=== PATIENT | female | born 1940 | race Caucasian/White ===

== ENCOUNTER 2020-12-01 10:36 | Emergency (ER) | payer MEDICARE, OTHER, SELFPAY ==
--- NOTE | ~2020-12-01 | XR_ITS ---
EXAMINATION: XR chest 2V DATE: 12/01/2020 11:17 INDICATION: Cough. Wheezing. TECHNIQUE: Frontal and lateral views of the chest were obtained. COMPARISON: None. FINDINGS: There is mild scarring at the lung apices. There are airspace opacities at the lung bases, consistent with atelectasis versus scarring. Calcified pulmonary nodules and calcified hilar and medi astinal lymph nodes are consistent with old granulomatous disease. No pleural effusion or pneumothora x. Cardiomegaly is noted. There is a left chest wall pacer with leads in the right atrium and right v entricle. There is a chronic compression fracture of mid thoracic spine. There is an old healed fract ure of left clavicle. IMPRESSION: 1. Mild atelectasis versus scarring at the lung bases and mild scarring at the lung apices. 2. Cardiomegaly. Reviewed, dictated and finalized at location A. ER INSTALLER
[2020-12-01 10:46] VITALS: BP 189/70; PULSE 58; RESP 14; TEMP 36.6; O2SAT 98
--- NOTE | 2020-12-01 11:01 | ED.URI ---
HPI - URI/Sore Throat General Chief Complaint: Upper Respiratory Infection Stated Complaint: cough Time Seen by Provider: 12/01/20 11:01 Source: patient and RN notes reviewed Mode of arrival: ambulatory Limitations: no limitations History of Present Illness HPI Narrative: 80 year old female presents to express care with complaints of cough with yellow mucous expectoration for the past 8 days. Patient states that she has some sinus drainage noted with sinus pressure and congestion,denies any ear pain, sore throat, no noted fevers, chills or sweats. Patient states that cough is worse at night has been taking Delsym and Robitussin for the cough with minimal improvement. MD elicited complaint: cough, rhinorrhea, nasal congestion and sinus pain Pertinent past history: asthma and seasonal allergies Onset (ago): day(s) (8) Consistency: progressively worsening Description of mucous: yellow Able to tolerate fluids by mouth: Yes Exacerbating factors: exertion Relieving factors: nothing Related Data Home Medications Medication Instructions Recorded Confirmed amiodarone 400 mg PO DAILY 12/01/20 12/01/20 atorvastatin 80 mg PO DAILY 12/01/20 12/01/20 cholecalciferol (vitamin D3) 100 mcg PO DAILY 12/01/20 12/01/20 [Vitamin D3] clopidogrel [Plavix] 75 mg PO DAILY 12/01/20 12/01/20 ergocalciferol (vitamin D2) 1,250 mcg PO WEEKLY 12/01/20 12/01/20 [Vitamin D2] famotidine 20 mg PO DAILY 12/01/20 12/01/20 levothyroxine 50 mcg PO DAILY 12/01/20 12/01/20 meloxicam 7.5 mg PO DAILY 12/01/20 12/01/20 metoprolol tartrate 100 mg PO DAILY 12/01/20 12/01/20 mometasone-formoterol [Dulera] 2 puff INHALATION Q12H 12/01/20 12/01/20 vitamins A,C,[id number] 2 tablet PO BID 12/01/20 12/01/20 [Ocuvite Preservision] Allergies Allergy/AdvReac Type Severity Reaction Status Date / Time nitrofurantoin Allergy Unknown Swelling Verified 12/01/20 11:01 Sulfa (Sulfonamide Allergy Unknown Rash Verified 12/01/20 11:01 Antibiotics) Review of Systems Review of Systems: Narrative: CONSTITUTIONAL: Denies fever, chills, or sweats. EYES: Denies visual changes, redness, or discharge. ENT: Positive rhinorrhea, congestion, sinus pain,no sore throat, or otalgia. CARDIOVASCULAR: Denies chest pain, palpitations, or edema. RESPIRATORY: Positive for cough and dyspnea with cough. GASTROINTESTINAL: Denies abdominal pain, nausea, vomiting, or diarrhea. GENITOURINARY: Denies dysuria or hematuria. SKIN: Denies rash or itching. MUSCULOSKELETAL: Denies back pain, joint pain, or myalgia. NEUROLOGIC: Denies headache, numbness, or weakness. PSYCHIATRIC: Denies anxiety or depression. All systems reviewed & are unremarkable except as noted in HPI and below PMFSH Past Medical History Medical History (Updated 12/01/20 @ 12:31 by Ann Oseguera NP) Arthritis Asthma Cardiac defibrillator in place Hyperlipidemia Hypertension Hypothyroidism Osteopenia Seasonal allergies Surgical History Surgical History (Updated 12/01/20 @ 12:31 by Ann Oseguera NP) H/O cataract removal with insertion of prosthetic lens H/O heart artery stent History of bladder suspension procedure History of cholecystectomy History of hysterectomy History of tonsillectomy History of total right knee replacement Hx of appendectomy Family History Family History (Updated 12/01/20 @ 11:14 by Ann Oseguera NP) Father Family history of malignant neoplasm Sibling Acute myocardial infarction Cerebrovascular accident Hypertension Mother Acute myocardial infarction Other Family history of arthritis Social History Social History (Updated 12/01/20 @ 11:25 by Ann Oseguera NP) Smoking status: Never smoker Alcohol intake: never Substance use: never Living arrangements: with family Occupation/Education: retired Gender identity (if verbalized by the patient): Female Comments At time of signature, agree with nursing past medical, surgical, social and family
[2020-12-01 11:06] VITALS: BP 189/70; PULSE 58; RESP 14; TEMP 36.6; O2SAT 98
[2020-12-01 11:45] VITALS: BP 142/80
== END 2020-12-01 11:45 | disposition home or self-care (01) ==
PROVIDERS: Emergency Provider Registered Nurse; PCP Internal Medicine
DX: J40 Bronchitis, not specified as acute or chronic (principal); J32.9 Chronic sinusitis, unspecified; M19.90 Unspecified osteoarthritis, unspecified site; J45.909 Unspecified asthma, uncomplicated; E78.5 Hyperlipidemia, unspecified; I10 Essential (primary) hypertension; E03.9 Hypothyroidism, unspecified; M85.80 Other specified disorders of bone density and structure, unspecified site; Z95.810 Presence of automatic (implantable) cardiac defibrillator; Z95.5 Presence of coronary angioplasty implant and graft; Z96.651 Presence of right artificial knee joint
CPT/HCPCS: 71046; 99213; G0463

== ENCOUNTER 2021-02-24 12:56 | Emergency (ER) | payer MEDICARE, OTHER, SELFPAY ==
[2021-02-24 13:04] VITALS: BP 137/61; PULSE 57; RESP 14; TEMP 36.5; O2SAT 98
--- NOTE | 2021-02-24 13:18 | ED.URI ---
HPI - URI/Sore Throat General Chief Complaint: Upper Respiratory Infection Stated Complaint: Sinus complaint Source: patient Mode of arrival: ambulatory Limitations: no limitations History of Present Illness HPI Narrative: Patient is a 80 year old female who presents complaining of sinus pressure, congestion and ear fullness . Patient reports initial sore throat. Patient denies cough. She reports history of sinusitis. She denies fever, cough, chest pain or shortness of breath. She reports Covid vaccine x 2 over a month ago. She denies taking over the counter medication for symptom relief. MD elicited complaint: nasal congestion and sinus pain Related Data Home Medications Medication Instructions Recorded Confirmed amiodarone 400 mg PO DAILY 12/01/20 02/24/21 atorvastatin 80 mg PO DAILY 12/01/20 02/24/21 cholecalciferol (vitamin D3) 100 mcg PO DAILY 12/01/20 02/24/21 [Vitamin D3] clopidogrel [Plavix] 75 mg PO DAILY 12/01/20 02/24/21 ergocalciferol (vitamin D2) 1,250 mcg PO WEEKLY 12/01/20 02/24/21 [Vitamin D2] famotidine 20 mg PO DAILY 12/01/20 02/24/21 levothyroxine 50 mcg PO DAILY 12/01/20 02/24/21 metoprolol tartrate 100 mg PO DAILY 12/01/20 02/24/21 mometasone-formoterol [Dulera] 2 puff INHALATION Q12H 12/01/20 02/24/21 aspirin 81 mg PO DAILY 02/24/21 02/24/21 Allergies Allergy/AdvReac Type Severity Reaction Status Date / Time nitrofurantoin Allergy Unknown Swelling Verified 02/24/21 13:12 Sulfa (Sulfonamide Allergy Unknown Rash Verified 02/24/21 13:12 Antibiotics) Review of Systems Review of Systems: Narrative: CONSTITUTIONAL: Denies fever, chills, or sweats. EYES: Denies visual changes, redness, or discharge. ENT: Reports congestion, sore throat, and otalgia. CARDIOVASCULAR: Denies chest pain, palpitations, or edema. RESPIRATORY: Denies cough or dyspnea. GASTROINTESTINAL: Denies abdominal pain, nausea, vomiting, or diarrhea. GENITOURINARY: Denies dysuria or hematuria. SKIN: Denies rash or itching. MUSCULOSKELETAL: Denies back pain, joint pain, or myalgia. NEUROLOGIC: Denies headache, numbness, dizziness, or weakness. PSYCHIATRIC: Denies anxiety or depression. [facility] Past Medical History Medical History Arthritis Asthma Cardiac defibrillator in place Hyperlipidemia Hypertension Hypothyroidism Osteopenia Seasonal allergies Surgical History Surgical History H/O cataract removal with insertion of prosthetic lens H/O heart artery stent History of bladder suspension procedure History of cholecystectomy History of hysterectomy History of tonsillectomy History of total right knee replacement Hx of appendectomy Family History Family History Father Family history of malignant neoplasm Sibling Acute myocardial infarction Cerebrovascular accident Hypertension Mother Acute myocardial infarction Other Family history of arthritis Social History Social History Smoking status: Never smoker Alcohol intake: never Substance use: never Gender identity (if verbalized by the patient): Female Comments At the time of signature, I have reviewed and agree with nursing past medical, surgical, social, and family history unless otherwise noted. Please see nursing chart for further information. There is no relevant family history pertinent to the presenting complaint. Exam Narrative: Exam Narrative: GENERAL: Well-appearing, well-nourished, and in no acute distress. HEAD: Normocephalic, atraumatic. EYES: EOMI. No redness or drainage. Conjunctiva are normal. ENT: Mucous membranes pink and moist. Nares clear. No rhinorrhea. Left TMs normal, right TM cloudy, bulging and injected. Throat mild erythema, maxillary and frontal sinus tenderness with palpation. Uvula midline. NECK
== END 2021-02-24 13:58 | disposition home or self-care (01) ==
PROVIDERS: Emergency Provider Nurse Practitioner; PCP Internal Medicine
DX: H66.90 Otitis media, unspecified, unspecified ear (principal); J01.00 Acute maxillary sinusitis, unspecified; M19.90 Unspecified osteoarthritis, unspecified site; J45.909 Unspecified asthma, uncomplicated; E78.5 Hyperlipidemia, unspecified; I10 Essential (primary) hypertension; E03.9 Hypothyroidism, unspecified; M85.80 Other specified disorders of bone density and structure, unspecified site; Z95.810 Presence of automatic (implantable) cardiac defibrillator; Z95.5 Presence of coronary angioplasty implant and graft
CPT/HCPCS: 99213; G0463

== ENCOUNTER 2021-10-20 10:32 | Emergency (ER) | payer MEDICARE, OTHER, SELFPAY ==
--- NOTE | ~2021-10-20 | XR_ITS ---
EXAMINATION: XR chest 2V EXAM DATE: 10/20/2021 11:25 INDICATION: cough sob x 1 week . TECHNIQUE: Frontal and lateral projections of the chest obtained and reviewed. Comparison is made to prior examination from 12/01/2020. FINDINGS: There is a dual lead pacemaker/AICD seen with leads projecting over the expected locations of the right atrial appendage and right ventricle. Chronic hyperinflation. Mild cardiomegaly. Small amount of scattered postinfectious residua. The lungs are otherwise clear. There is no pneumothorax s uspected. There are no pleural effusions. There are mild bony degenerative changes. Lumbar scoliosis. IMPRESSION: 1. Cardiomegaly. 2. Hyperinflation. 3. No acute findings. Reviewed, dictated and finalized at location B. N RESOURCE MANAGER
[2021-10-20 10:40] VITALS: BP 153/73; PULSE 74; RESP 18; TEMP 36.9; O2SAT 96
--- NOTE | 2021-10-20 10:47 | ED.LOWEXIN ---
HPI - Extremity Injury (Lower) General Stated Complaint: cough headache pressure Time Seen by Provider: 10/20/21 10:47 Source: patient, RN notes reviewed and old records reviewed Mode of arrival: ambulatory Limitations: no limitations Related Data Home Medications Medication Instructions Recorded Confirmed amiodarone 400 mg PO DAILY 12/01/20 02/24/21 atorvastatin 80 mg PO DAILY 12/01/20 02/24/21 cholecalciferol (vitamin D3) 100 mcg PO DAILY 12/01/20 02/24/21 [Vitamin D3] clopidogrel [Plavix] 75 mg PO DAILY 12/01/20 02/24/21 ergocalciferol (vitamin D2) 1,250 mcg PO WEEKLY 12/01/20 02/24/21 [Vitamin D2] famotidine 20 mg PO DAILY 12/01/20 02/24/21 levothyroxine 50 mcg PO DAILY 12/01/20 02/24/21 metoprolol tartrate 100 mg PO DAILY 12/01/20 02/24/21 mometasone-formoterol [Dulera] 2 puff INHALATION Q12H 12/01/20 02/24/21 aspirin 81 mg PO DAILY 02/24/21 02/24/21 Allergies Allergy/AdvReac Type Severity Reaction Status Date / Time nitrofurantoin Allergy Unknown Swelling Verified 02/24/21 13:12 Sulfa (Sulfonamide Allergy Unknown Rash Verified 02/24/21 13:12 Antibiotics) [facility] Past Medical History Medical History Arthritis Asthma Cardiac defibrillator in place Hyperlipidemia Hypertension Hypothyroidism Osteopenia Seasonal allergies Surgical History Surgical History H/O cataract removal with insertion of prosthetic lens H/O heart artery stent History of bladder suspension procedure History of cholecystectomy History of hysterectomy History of tonsillectomy History of total right knee replacement Hx of appendectomy Family History Family History Father Family history of malignant neoplasm Sibling Acute myocardial infarction Cerebrovascular accident Hypertension Mother Acute myocardial infarction Other Family history of arthritis Social History Social History Smoking status: Never smoker Alcohol intake: never Substance use: never Gender identity (if verbalized by the patient): Female Discharge Plan Discharge Prescriptions: No Action atorvastatin 80 mg Tablet 80 mg PO DAILY RF: 0 metoprolol tartrate 100 mg Tablet 100 mg PO DAILY RF: 0 clopidogrel [Plavix] 75 mg Tablet 75 mg PO DAILY RF: 0 famotidine 20 mg Tablet 20 mg PO DAILY RF: 0 amiodarone 400 mg Tablet 400 mg PO DAILY RF: 0 levothyroxine 50 mcg Tablet 50 mcg PO DAILY RF: 0 ergocalciferol (vitamin D2) [Vitamin D2] 1,250 mcg (50,000 unit) Capsule 1,250 mcg PO WEEKLY RF: 0 Dulera 200-5 mcg/actuation Hfa Aerosol Inhaler 2 puff INHALATION Q12H RF: 0 Vitamin D3 100 mcg (4,000 unit) Capsule 100 mcg PO DAILY RF: 0 aspirin 81 mg Tablet 81 mg PO DAILY RF: 0 amoxicillin-pot clavulanate 875-125 mg tablet 1 tablet PO Q12H 7 Days Qty: 14 RF: 0
--- NOTE | 2021-10-20 10:49 | ED.URI ---
HPI - URI/Sore Throat General Chief Complaint: Upper Respiratory Infection Stated Complaint: cough headache pressure Time Seen by Provider: 10/20/21 10:47 Source: patient, RN notes reviewed and old records reviewed Mode of arrival: ambulatory Limitations: no limitations History of Present Illness HPI Narrative: 81-year-old female presents to the [facility] with complaints of cough and sinus congestion for about 2 weeks. Has tried [id number] products and states nothing is really working. Has a history of cardiac issues, high cholesterol, thyroid disorder. Denies fevers. Denies shortness of breath. Related Data Home Medications Medication Instructions Recorded Confirmed amiodarone 400 mg PO DAILY 12/01/20 02/24/21 atorvastatin 80 mg PO DAILY 12/01/20 02/24/21 cholecalciferol (vitamin D3) 100 mcg PO DAILY 12/01/20 02/24/21 [Vitamin D3] clopidogrel [Plavix] 75 mg PO DAILY 12/01/20 02/24/21 ergocalciferol (vitamin D2) 1,250 mcg PO WEEKLY 12/01/20 02/24/21 [Vitamin D2] famotidine 20 mg PO DAILY 12/01/20 02/24/21 levothyroxine 50 mcg PO DAILY 12/01/20 02/24/21 metoprolol tartrate 100 mg PO DAILY 12/01/20 02/24/21 mometasone-formoterol [Dulera] 2 puff INHALATION Q12H 12/01/20 02/24/21 aspirin 81 mg PO DAILY 02/24/21 02/24/21 Allergies Allergy/AdvReac Type Severity Reaction Status Date / Time nitrofurantoin Allergy Unknown Swelling Verified 02/24/21 13:12 Sulfa (Sulfonamide Allergy Unknown Rash Verified 02/24/21 13:12 Antibiotics) Review of Systems Review of Systems: All systems reviewed & are unremarkable except as noted in HPI and below Constitutional: Constitutional: Reports no additional constitutional complaints, Denies chills and Denies fever(s) Eyes: Eyes: Reports no additional eye complaints ENT: Reports as per HPI and Reports nasal congestion Cardiovascular: Cardiovascular: Reports no additional cardiovascular complaints, Denies chest pain, Denies rapid heart rate and Denies radiating jaw, neck or arm pain Respiratory: Respiratory: Reports as per HPI, Reports chest congestion, Reports cough and Denies dyspnea Gastrointestinal: Gastrointestinal: Reports no additional gastrointestinal complaints, Denies abdominal pain, Denies nausea and Denies vomiting Musculoskeletal: Musculoskeletal: Reports no additional musculoskeletal complaints Integumentary/Breasts: Skin/Breast: Reports system reviewed and no additional complaints, except as docu Neurologic: Reports system reviewed and no additional complaints, except as documented Psychiatric: Psychiatric: Reports no additional psychiatric complaints Allergic/Immunologic: Allergic/Immunologic: Reports no additional allergic/immunologic complaints PMFSH Past Medical History Medical History Arthritis Asthma Cardiac defibrillator in place Hyperlipidemia Hypertension Hypothyroidism Osteopenia Seasonal allergies Surgical History Surgical History H/O cataract removal with insertion of prosthetic lens H/O heart artery stent History of bladder suspension procedure History of cholecystectomy History of hysterectomy History of tonsillectomy History of total right knee replacement Hx of appendectomy Family History Family History Father Family history of malignant neoplasm Sibling Acute myocardial infarction Cerebrovascular accident Hypertension Mother Acute myocardial infarction Other Family history of arthritis Social History Social History Smoking status: Never smoker Alcohol intake: never Substance use: never Gender identity (if verbalized by the patient): Female Comments At the time of my signature, I reviewed and agree with the nursing past medical, surgical, social, and family history. There is no relevant family history devante
== END 2021-10-20 11:58 | disposition home or self-care (01) ==
PROVIDERS: Emergency Provider Nurse Practitioner; PCP Internal Medicine
DX: J01.40 Acute pansinusitis, unspecified (principal); M19.90 Unspecified osteoarthritis, unspecified site; J45.909 Unspecified asthma, uncomplicated; E78.5 Hyperlipidemia, unspecified; I10 Essential (primary) hypertension; E03.9 Hypothyroidism, unspecified; M85.80 Other specified disorders of bone density and structure, unspecified site; Z95.810 Presence of automatic (implantable) cardiac defibrillator; Z98.49 Cataract extraction status, unspecified eye; Z96.1 Presence of intraocular lens; Z96.651 Presence of right artificial knee joint; Z79.01 Long term (current) use of anticoagulants
CPT/HCPCS: 71046; 99213; G0463

== ENCOUNTER 2022-03-31 10:18 | Emergency (ER) | payer MEDICARE, OTHER, SELFPAY ==
--- NOTE | ~2022-03-31 | XR_ITS ---
EXAMINATION: XR chest 2V DATE: 03/31/2022 10:40 INDICATION: Cough and congestion. TECHNIQUE: Frontal and lateral views of the chest were obtained. COMPARISON: Chest 2 views 10/20/2021 FINDINGS: There is mild scarring at the lung apices. There is mild atelectasis at left lung base. A c alcified right lung nodule and calcified right hilar lymph nodes are consistent with old adenomatous disease. No pleural effusion or pneumothorax. The heart size is normal. There is a left chest wall pa cer with leads in the right atrium and right ventricle. There is a chronic compression fracture in mi d thoracic spine. There is an old healed fracture of left clavicle. IMPRESSION: 1. Stable mild scarring at the lung apices. 2. Mild atelectasis at left lung base. Reviewed, dictated and finalized at location A.
[2022-03-31 10:24] VITALS: BP 129/75; PULSE 77; RESP 14; TEMP 36.9; O2SAT 97
--- NOTE | 2022-03-31 10:31 | ED.URI ---
HPI - URI/Sore Throat General Chief Complaint: Upper Respiratory Infection Stated Complaint: cough congestion Time Seen by Provider: 03/31/22 10:31 Source: patient, RN notes reviewed and old records reviewed Mode of arrival: ambulatory Limitations: no limitations History of Present Illness HPI Narrative: 81 year old female who presents to [facility] care with complaints of cough with congestion and sinus congestion and drainage for the past 5 days. She reports that she initially had a sore throat but that has resolved. Patient reports that she has had some noted wheezing and cough is especially bad at night, has been taking some cough syrup with minimal improvement. Patient reports that she has not been using her inhalers. Patient reports that she has some chest and upper back pain with cough and deep breathing.Patient reports that she is vaccinated for COVID and flu Pertinent past history: asthma and other (cardiac history) Onset (ago): day(s) (5) Able to tolerate fluids by mouth: Yes Treatments prior to arrival: other (cough medication) Related Data Home Medications Medication Instructions Recorded Confirmed amiodarone 400 mg tablet 400 mg PO DAILY 12/01/20 02/24/21 atorvastatin 80 mg tablet 80 mg PO DAILY 12/01/20 02/24/21 cholecalciferol (vitamin D3) 100 100 mcg PO DAILY 12/01/20 02/24/21 mcg (4,000 unit) capsule (Vitamin D3) clopidogrel 75 mg tablet (Plavix) 75 mg PO DAILY 12/01/20 02/24/21 ergocalciferol (vitamin D2) 1,250 1,250 mcg PO WEEKLY 12/01/20 02/24/21 mcg (50,000 unit) capsule (Vitamin D2) famotidine 20 mg tablet 20 mg PO DAILY 12/01/20 02/24/21 levothyroxine 50 mcg tablet 50 mcg PO DAILY 12/01/20 02/24/21 metoprolol tartrate 100 mg tablet 100 mg PO DAILY 12/01/20 02/24/21 mometasone-formoterol HFA 200 2 puff inhalation Q12H 12/01/20 02/24/21 mcg-5 mcg/actuation aerosol inhaler (Dulera) aspirin 81 mg tablet 81 mg PO DAILY 02/24/21 02/24/21 Allergies Allergy/AdvReac Type Severity Reaction Status Date / Time nitrofurantoin Allergy Unknown Swelling Verified 02/24/21 13:12 Sulfa (Sulfonamide Allergy Unknown Rash Verified 02/24/21 13:12 Antibiotics) Review of Systems Review of Systems: CONSTITUTIONAL: Denies fever, chills, or sweats. EYES: Denies visual changes, redness, or discharge. ENT: Positive for rhinorrhea, congestion, sore throat resolved,no otalgia. CARDIOVASCULAR: reports some upper chest pain and back pain with coughing and at times with her breathing,no palpitations, or edema. RESPIRATORY: Positive cough denies any acute dyspnea. GASTROINTESTINAL: Denies abdominal pain, nausea, vomiting, or diarrhea. GENITOURINARY: Denies dysuria or hematuria. SKIN: Denies rash or itching. MUSCULOSKELETAL: Positive upper back pain, joint pain, or myalgia. NEUROLOGIC: Denies headache, numbness, or weakness. PSYCHIATRIC: Denies anxiety or depression. [facility] Past Medical History Medical History Arthritis Asthma Cardiac defibrillator in place Hyperlipidemia Hypertension Hypothyroidism Osteopenia Seasonal allergies Surgical History Surgical History H/O cataract removal with insertion of prosthetic lens H/O heart artery stent History of bladder suspension procedure History of cholecystectomy History of hysterectomy History of tonsillectomy History of total right knee replacement Hx of appendectomy Family History Family History Father Family history of malignant neoplasm Sibling Acute myocardial infarction Cerebrovascular accident Hypertension Mother Acute myocardial infarction Other Family history of arthritis Social History Social History Smoking status: Never smoker Alcohol intake: never Substance use: never Gender identity (if verbalized by the patient
== END 2022-03-31 11:09 | disposition home or self-care (01) ==
PROVIDERS: Emergency Provider Registered Nurse; PCP Internal Medicine
DX: J01.90 Acute sinusitis, unspecified (principal); B96.89 Other specified bacterial agents as the cause of diseases classified elsewhere; J45.901 Unspecified asthma with (acute) exacerbation; E78.5 Hyperlipidemia, unspecified; I10 Essential (primary) hypertension; Z79.82 Long term (current) use of aspirin; E03.9 Hypothyroidism, unspecified
CPT/HCPCS: 71046; 99213; G0463